=== PATIENT | male | born 1995 | race Caucasian/White ===

== ENCOUNTER 2017-05-13 20:56 | Emergency (ER) | payer BC ==
[2017-05-13] MEDS ORDERED: Bacitracin Zinc 1 Packet ONE (21:40)
== END 2017-05-13 21:44 | disposition home or self-care (01) ==
LOC: BURERS 20:56
DX: S61.210A Laceration without foreign body of right index finger without damage to nail, initial encounter (principal); W45.8XXA Other foreign body or object entering through skin, initial encounter
CPT/HCPCS: 12001